=== PATIENT | male | born 1945 | race Caucasian/White ===

== ENCOUNTER → 2017-10-30 14:04 | Outpatient (CLI) | payer MEDICARE, OTHER, SELFPAY ==
--- NOTE | 2017-10-30 | DI.RAD.S_ITS ---
PROCEDURE: XR KNEE RT 1TO2V INDICATIONS: RT KNEE PAIN TECHNIQUE: 2 views of the knee were acquired. COMPARISON: None. FINDINGS: Bones: No fractures or dislocations. No suspicious bony lesions. Moderately severe knee joint osteoarthritis& involving all 3 compartments and most pronounced at the medial compartment Soft tissues: No joint effusion. There are several soft tissue calcifications overlying the region on the lateral view both anteriorly and posteriorly. These may represent intra-articular loose bodies. They range in size from 3 mm to 10 mm. There are 3 total.. IMPRESSION: Tricompartmental knee joint osteoarthritis is moderately severe, intra-articular loose bodies appear present ranging in size from 3-10 mm. Dictated by: Damion Rey M.D. on 10/30/2017 at 14:48 Approved by: Damion Rey M.D. on 10/30/2017 at 14:56
== END ==
PROVIDERS: Visit Provider Internal Medicine
DX: M17.11 Unilateral primary osteoarthritis, right knee (principal); M25.561 Pain in right knee
CPT/HCPCS: 73560

== ENCOUNTER → 2020-04-13 13:02 | Outpatient (CLI) | payer MEDICARE, OTHER, SELFPAY ==
[2020-04-13] MEDS: COVID-19 VACC #1, MRNA(MOD) 100 MCG/0.5 ML VIAL IM (13:08)
== END ==
PROVIDERS: Visit Provider Internal Medicine
DX: Z23 Encounter for immunization (principal)
CPT/HCPCS: 0011A; 91301

== ENCOUNTER → 2020-05-12 11:02 | Outpatient (CLI) | payer MEDICARE, OTHER, SELFPAY ==
[2020-05-12] MEDS: COVID-19 VACC #2, MRNA(MOD) 100 MCG/0.5 ML VIAL IM (11:05)
== END ==
PROVIDERS: Visit Provider Internal Medicine
DX: Z23 Encounter for immunization (principal)
CPT/HCPCS: 0012A; 91301